=== PATIENT | male | born 1985 | race Caucasian/White ===

== ENCOUNTER 2017-06-17 02:53 | Emergency (ER) | payer OTHER ==
[~2017-06-17] VITALS: Ht 177.8 cm; Wt 95.3 kg
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
--- NOTE | 2017-06-17 03:30 | NUR ---
AT BEDSIDE FOR EVAL.
--- NOTE | 2017-06-17 03:43 | NUR ---
L KNEE CLEANED WITH NS, NON-ADHESIVE DRESSING APPLIED AND WRAPPED WITH KERLIX.
--- NOTE | 2017-06-17 03:46 | NUR ---
PT TO CT VIA STRETCHER, VSS.
[2017-06-17] MEDS ORDERED: HYDROCODONE/APAP 5/325MG 1 EACH TABLET PO ONE (04:00)
[2017-06-17] MEDS ORDERED: TDAP [DIPH/PERTUSSIS/TET] 0.5 ML VIAL IM ONE ×2 (04:00→04:14)
[2017-06-17] MEDS ORDERED: HYDROCODONE/APAP 5/325MG 1 EACH TABLET ONE (04:14)
--- NOTE | 2017-06-17 04:15 | NUR ---
PT BACK FROM CT.
--- NOTE | 2017-06-17 04:43 | NUR ---
Patient discharged to home in stable condition. Written and verbal after care instructions given. Patient verbalizes understanding of instruction. Patient ambulatory with a steady gait.
[2017-06-17 04:44] VITALS: BP 128/81
== END 2017-06-17 04:44 | disposition home or self-care (01) ==
LOC: ER 02:56
DX: S16.1XXA Strain of muscle, fascia and tendon at neck level, initial encounter (principal); S20.212A Contusion of left front wall of thorax, initial encounter; S80.212A Abrasion, left knee, initial encounter; D32.9 Benign neoplasm of meninges, unspecified; V89.2XXA Person injured in unspecified motor-vehicle accident, traffic, initial encounter; Y93.89 Activity, other specified; Y92.413 State road as the place of occurrence of the external cause; Y99.8 Other external cause status
CPT/HCPCS: 70450; 71045; 72125; 73564; 90471; 90715; 99284; A4606; A6402; Z7610